=== PATIENT | female | born 1945 | race Caucasian/White ===

== ENCOUNTER 2023-11-09 09:30 | Outpatient (RCR) | payer MEDICARE, SELFPAY | END 2023-11-14 10:30 | disposition home or self-care (01) | PROVIDERS: PCP Family Medicine | DX: Z98.890 Other specified postprocedural states (principal); Z95.818 Presence of other cardiac implants and grafts | CPT/HCPCS: 93798 ==

== ENCOUNTER 2023-12-12 10:48 | Outpatient (RCR) | payer MEDICARE, SELFPAY ==
--- NOTE | 2023-12-12 12:03 | OPREHPOC ---
Outpatient Therapy Plan of Care This is a Multidisciplinary Plan of Care that may contain components documented by all disciplines (PT, OT, and ST.) PT Problem 1 PT Problem #1 Knowledge Deficit PT Goal 1 Goal The patient will be independent in a home exercise program. Target Visit 4 PT Problem 2 PT Problem #2 Impaired Balance PT Goal 1 Goal 1. The patient will improve the Tinetti Balance Scale score to at least 19/24 indicating a moderate fall risk rather than high fall risk. 2. The patient will complete the TUG test in 20 seconds or less. 3. The patient will report no falls while participating in PT. Target Visit 12 PT Problem 3 PT Problem #3 Impaired Gait PT Goal 1 Goal 1. The patient will demonstrate independent gait with improved step length and full foot clearance. 2. The patient will complete 500 feet of ambulation with SPC during the 6 minute walk test. Target Visit 12 PT Problem 4 PT Problem #4 Impaired Functional Mobil PT Goal 1 Goal The patient will demonstrate the ability to transfer sit to stand without use of the UE. Target Visit 12
--- NOTE | 2023-12-12 12:04 | PTOPEVAL1 ---
Assessment and note entered by Silvia Phillips, PT Evaluation Information Assessment Status Evaluation Diagnosis generalized weakness Onset 12/05/23 Subjective Information Briseida Recinos and her reports she was doing cardiac rehab and finished about 2 weeks ago . She is having difficulty getting out of a chair and notes a decline her strength. She is walking slow and has to take stairs one at a time. So her doctor recommended she try PT to build strength. She uses a cane for ambulation and has for many years. She has not had any falls. She denies pain. She denies dizziness and light headedness as well . Reported Pain Level Pain Score 0: Self Report Assessment PT Clinical Summary Briseida Recinos presents with generalized weakness. She reports difficulty getting up out of chairs, walking longer distance, and going up and down stairs. She demonstrates decreased bilateral lower extremity strength, decreased functional mobility with sit to stand transfers, altered gait with shuffling and decreased step length, and decreased static and dynamic balance. She is demonstrating a high fall risk per standard balance tests today. She will benefit from skilled PT to address these limitations. Plan of Care Interventions Gait Training,Neuro Re-education,Patient/Caregiver Educati,Therapeutic Activities,Therapeutic Exercise PT Services Indicated Yes Treatment Frequency and 3 times a week for 12 visits Duration These treatments will address the objective and functional deficits as defined above. The patient will be advanced safely and appropriately in order for the patient to progress towards his/her prior level of function. Additional exercises will be introduced and as well as a comprehensive home exercise program upon discharge, if needed, ?to ensure carryover of functional gains achieved in the clinic. This treatment plan has been reviewed and agreement upon by the patient.
--- NOTE | 2024-01-07 09:01 | PTOPPROG ---
Assessment and note entered by [facility] Evaluation Information Assessment Status Progress Diagnosis generalized weakness ICD-10 Condition Codes (PT) Weakness R53.1 Onset 12/05/23 Subjective Information Pt. reports that she is better, but not much better. She denies any falls since beginning therapy. She continues use of her cane inside and outside the home. She states that she still holds her if walking in the community. She reports that she concentrates on picking her feet up, but states that she continues to shuffle her feet. Assessment PT Clinical Summary Pt. has attended a total of 10 treatment sessions. She has demonstrates significant improvements in regards to gait efficiency, balance and endurance . Despite these improvements she remains a high fall risk. Pt. currently has 2 sessions left on her POC and recommend continued skilled PT per POC in order to further improve functional mobility, strength and balance to continue to minimize pt. fall risk. Plan of Care Interventions Gait Training,Manual Therapy,Neuro Re-education, Therapeutic Activities,Therapeutic Exercise PT Services Indicated Yes Treatment Frequency and continue for 2 additional treatment sessions Duration focusing on remaining balance deficits. These treatments will address the objective and functional deficits as defined above. The patient will be advanced safely and appropriately in order for the patient to progress towards his/her prior level of function. Additional exercises will be introduced and as well as a comprehensive home exercise program upon discharge, if needed, ?to ensure carryover of functional gains achieved in the clinic. This treatment plan has been reviewed and agreement upon by the patient.
--- NOTE | 2024-01-11 10:24 | OPREHPOC ---
Outpatient Therapy Plan of Care This is a Multidisciplinary Plan of Care that may contain components documented by all disciplines (PT, OT, and ST.) PT Problem 1 PT Problem #1 Knowledge Deficit PT Goal 1 Goal The patient will be independent in a home exercise program. Target Visit 4 Progress Met PT Problem 2 PT Problem #2 Impaired Balance PT Goal 1 Goal 1. The patient will improve the Tinetti Balance Scale score to at least 19/24 indicating a moderate fall risk rather than high fall risk. not met 2. The patient will complete the TUG test in 20 seconds or less. not met 3. The patient will report no falls while participating in PT. met Target Visit 12 Progress Partially Met PT Problem 3 PT Problem #3 Impaired Gait PT Goal 1 Goal 1. The patient will demonstrate independent gait with improved step length and full foot clearance. not met 2. The patient will complete 500 feet of ambulation with SPC during the 6 minute walk test. not met Target Visit 12 Progress Not Met PT Problem 4 PT Problem #4 Impaired Functional Mobil PT Goal 1 Goal The patient will demonstrate the ability to transfer sit to stand without use of the UE. Target Visit 12 Progress Not Met
--- NOTE | 2024-01-11 10:24 | PTOPDC ---
Assessment and note entered by [facility]T [facility], PT Evaluation Information Assessment Status Discharge Diagnosis generalized weakness ICD-10 Condition Codes (PT) Weakness R53.1 Onset 12/05/23 Subjective Information patient reports she feels good today. she reports she feels she is getting around pretty well. she reports she still uses the cane in and out of the house, and uses her for stability as well. Reported Pain Level Pain Score 0: Self Report Assessment PT Clinical Summary mrs. pruitt presents to skilled PT for her 12th skilled PT visit. she presents today with continued deficits in gait mechanics and balance. she was assessed with a WW for ambulation, and although she continues to shuffle, her confidence and speed are improved. patient has made only partial progress towards goals since her initial evaluation, and remains a high fall risk. she and her were educated on the plan to end skilled PT at this time, but continue with HEP at home and attend 2x weekly fall prevention class. Plan of Care PT Services Indicated Yes
== END 2024-01-11 10:46 | disposition home or self-care (01) ==
LOC: CHSPT 10:48
PROVIDERS: Visit Provider Family Medicine
DX: R53.1 Weakness (principal)
CPT/HCPCS: 97110; 97112; 97116; 97161; 97530; 97750